=== PATIENT | female | born 1970 | race Two or more races ===

== ENCOUNTER 2017-06-25 11:54 | Emergency (ER) | payer MEDICAID ==
[~2017-06-25] VITALS: Ht 165.1 cm; Wt 59.0 kg
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
[2017-06-25] MEDS ORDERED: SILVER SULFADIAZINE CREAM 25 GM TUBE ONE (12:52)
[2017-06-25] MEDS ORDERED: IBUPROFEN 600 MG TABLET PO ONE ×2 (13:00→13:04)
[2017-06-25] MEDS ORDERED: SILVER SULFADIAZINE CREAM 25 GM TUBE TP ONE (13:00)
[2017-06-25] MEDS ORDERED: TDAP [DIPH/PERTUSSIS/TET] 0.5 ML VIAL IM ONE ×2 (13:00→13:04)
--- NOTE | 2017-06-25 13:08 | NUR ---
SILVADINE CREAM APPLIED TO R HAND WITH DRESSING
--- NOTE | 2017-06-25 13:10 | NUR ---
PT. VERBALIZED UNDERSTANDING OF AFTERCARE INSTRUCTIONS.Patient discharged to home in stable condition. Written and verbal after care instructions given. Patient verbalizes understanding of instruction.
[2017-06-25 13:14] VITALS: BP 105/60
== END 2017-06-25 13:14 | disposition home or self-care (01) ==
LOC: ER 11:59
DX: T23.201A Burn of second degree of right hand, unspecified site, initial encounter (principal); M79.641 Pain in right hand; Z90.89 Acquired absence of other organs; X19.XXXA Contact with other heat and hot substances, initial encounter; Y93.89 Activity, other specified; Y92.89 Other specified places as the place of occurrence of the external cause; Y99.8 Other external cause status
CPT/HCPCS: 16020; 90471; 90715; 99284; A4606; Z7610

== ENCOUNTER 2017-06-29 12:16 | Emergency (ER) | payer MEDICAID ==
[~2017-06-29] VITALS: Ht 157.5 cm; Wt 59.0 kg
[2017-06-29] MEDS ORDERED: SILVER SULFADIAZINE CREAM 25 GM TUBE ONE (12:35)
[2017-06-29] MEDS ORDERED: ONDANSETRON HCL/PF 4 MG/2 ML VIAL ONE (12:52)
[2017-06-29] MEDS ORDERED: IBUPROFEN 600 MG TABLET PO ONE ×2 (12:52→13:00)
[2017-06-29] MEDS ORDERED: MORPHINE SULFATE INJ 4 MG/ML DISP.SYRIN ONE ×2 (12:52→12:55)
[2017-06-29] MEDS ORDERED: ONDANSETRON 4 MG TAB.RAPDIS ONE (12:53)
[2017-06-29] MEDS ORDERED: ONDANSETRON 4 MG TAB.RAPDIS SL ONE (13:00)
[2017-06-29] MEDS ORDERED: MORPHINE SULFATE INJ 2 MG/ML DISP.SYRIN IM ONE (13:00)
[2017-06-29] MEDS ORDERED: SILVER SULFADIAZINE CREAM 25 GM TUBE TP ONE (13:00)
[2017-06-29 15:46] VITALS: BP 124/68
== END 2017-06-29 15:47 | disposition home or self-care (01) ==
LOC: ER 12:18
DX: T23.201A Burn of second degree of right hand, unspecified site, initial encounter (principal); M54.30 Sciatica, unspecified side; Z90.89 Acquired absence of other organs; Z90.49 Acquired absence of other specified parts of digestive tract; X19.XXXA Contact with other heat and hot substances, initial encounter; Y93.89 Activity, other specified; Y92.89 Other specified places as the place of occurrence of the external cause; Y99.8 Other external cause status
CPT/HCPCS: A4606; A6403; J2270; J2405; J7030; Q0162; Z7610

== ENCOUNTER 2019-01-10 19:25 | Emergency (ER) | payer MEDICAID ==
[~2019-01-10] VITALS: Ht 157.5 cm; Wt 61.2 kg
--- NOTE | 2019-01-10 19:53 | NUR ---
URINE COLLECTED AND SENT TO LAB
[2019-01-10] MEDS ORDERED: DEXAMETHASONE SOD PHOSPHATE 10 MG/ML VIAL ONE (20:13)
[2019-01-10] MEDS ORDERED: CYCLOBENZAPRINE 10 MG TABLET ONE (20:13)
[2019-01-10] MEDS ORDERED: KETOROLAC TROMETHAMINE INJ 30 MG/ML VIAL ONE (20:13)
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
[2019-01-10] MEDS ORDERED: KETOROLAC TROMETHAMINE INJ 30 MG/ML VIAL IV ONE (20:30)
[2019-01-10] MEDS ORDERED: CYCLOBENZAPRINE 10 MG TABLET PO ONE (20:30)
[2019-01-10] MEDS ORDERED: DEXAMETHASONE SOD PHOSPHATE 4 MG/ML VIAL IV ONE (20:30)
[2019-01-10] MEDS ORDERED: IV NS 0.9% 1,000 ML BAG IV ONE (20:30)
--- NOTE | 2019-01-10 20:43 | NUR ---
MEDICATED FOR PAIN PER JASON PLUMMER'S ORDER, PT PATRIZIA WELL.
--- NOTE | 2019-01-10 22:23 | NUR ---
PT AMB TO BR, PATRIZIA WELL. JASON PLUMMER AWARE.
--- NOTE | 2019-01-10 22:38 | NUR ---
Patient discharged to home in stable condition. Written and verbal after care instructions given. Patient verbalizes understanding of instruction. IV removed. Catheter intact and site benign. Pressure and 4x4 applied to site. No bleeding noted.
[2019-01-10 22:39] VITALS: BP 122/85
== END 2019-01-10 22:40 | disposition home or self-care (01) ==
LOC: ER 19:29
DX: G89.29 Other chronic pain (principal); M54.5 Low back pain; Z98.890 Other specified postprocedural states
CPT/HCPCS: 96374; 96375; 99283; J1100; J1885; J7030

== ENCOUNTER 2019-04-12 12:04 | Emergency (ER) | payer MEDICAID ==
[~2019-04-12] VITALS: Ht 157.5 cm; Wt 61.2 kg
[2019-04-12 12:09] VITALS: BP 117/65
--- NOTE | 2019-04-12 12:43 | NUR ---
PT LEFT WITHOUT BEING SEEN.
== END 2019-04-12 12:44 | disposition left against medical advice (07) ==
LOC: ER 12:05
DX: M54.9 Dorsalgia, unspecified (principal); Z53.21 Procedure and treatment not carried out due to patient leaving prior to being seen by health care provider

== ENCOUNTER 2020-09-12 17:20 | Emergency (ER) | payer MEDICAID ==
[~2020-09-12] VITALS: Ht 157.5 cm; Wt 63.5 kg
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
[2020-09-12] MEDS ORDERED: ONDANSETRON 4 MG TAB.RAPDIS ONE (17:58)
[2020-09-12] MEDS ORDERED: KETOROLAC TROMETHAMINE INJ 30 MG/ML VIAL ONE (17:58)
[2020-09-12] MEDS ORDERED: MORPHINE SULFATE INJ 2 MG/ML DISP.SYRIN IM ONE ×2 (18:00)
[2020-09-12] MEDS ORDERED: HYDROMORPHONE 1 MG/1 ML DISP.SYRIN IM ONE (18:00)
[2020-09-12] MEDS ORDERED: KETOROLAC TROMETHAMINE INJ 60 MG/2 ML VIAL IM ONE (18:00)
[2020-09-12] MEDS ORDERED: ONDANSETRON 4 MG TAB.RAPDIS SL ONE (18:00)
[2020-09-12] MEDS ORDERED: HYDROMORPHONE 1 MG/1 ML DISP.SYRIN ONE (18:04)
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
[2020-09-12 19:27] VITALS: BP 106/58
--- NOTE | 2020-09-12 19:27 | NUR ---
Patient discharged to home in stable condition. Written and verbal after care instructions given. Patient verbalizes understanding of instruction.
== END 2020-09-12 19:28 | disposition home or self-care (01) ==
LOC: ER 17:24
DX: M54.41 Lumbago with sciatica, right side (principal); G89.29 Other chronic pain; Z90.89 Acquired absence of other organs; Z98.890 Other specified postprocedural states; Z88.5 Allergy status to narcotic agent
CPT/HCPCS: 96372 ×2; 99284; J1170; J1885; Q0162

== ENCOUNTER 2020-12-11 11:10 | Emergency (ER) | payer MEDICAID ==
[~2020-12-11] VITALS: Ht 157.5 cm; Wt 74.8 kg
--- NOTE | 2020-12-11 11:20 | NUR ---
REQUESTED FOR URINE SAMPLE BUT UNABLE TO GIVE AT THIS TIME
--- NOTE | 2020-12-11 11:30 | NUR ---
SALINE LOCK ESTABLISHED, BLOOD DRAWN FOR LABS. AWAITING MD FERRIS
[2020-12-11] MEDS ORDERED: ONDANSETRON HCL/PF 4 MG/2 ML VIAL ONE (11:38)
[2020-12-11] MEDS: IV NS 0.9% 1,000 ML BAG IV ONE (11:40)
[2020-12-11] MEDS: ONDANSETRON HCL/PF 4 MG/2 ML VIAL IVP ONE (11:42)
[2020-12-11 11:49] LABS: BASOPHILS # (AUTO) 0.1 K/uL (0.0-0.2); BASOPHILS % (AUTO) 0.7 % (0.0-2.0); EOSINOPHILS % (AUTO) 1.1 % (0.0-6.0); HEMATOCRIT 41 % (33-45); HEMOGLOBIN 13.8 g/dL (11.5-14.8); LYMPHOCYTES # (AUTO) 1.7 K/uL (0.8-4.8); LYMPHOCYTES % (AUTO) 19.8 % (20.0-44.0); MEAN CORPUSCULAR HGB CONC 34 g/dl (31.0-36.0); MEAN CORPUSCULAR VOLUME 87 fL (82-100); MONOCYTES # (AUTO) 0.7 K/uL (0.1-1.30); MONOCYTES % (AUTO) 8.5 % (2.0-12.0); NEUTROPHILS # (AUTO) 6.1 K/uL (1.8-8.9); NEUTROPHILS % (AUTO) 69.9 % (43.0-81.0); PLATELET COUNT (AUTO) 190 K/uL (150-450); RED BLOOD CELL COUNT(AUTO) 4.63 MIL/uL (4.0-5.2); WHITE BLOOD COUNT (AUTO) 8.7 K/uL (4.3-11.0)
--- NOTE | 2020-12-11 11:50 | NUR ---
US TECH AT BEDSIDE
--- NOTE | 2020-12-11 11:55 | NUR ---
SEEN BY DR SANCHEZ, MEDICATED ORDERED, WAITING ON URINE SPECIMEN.
[2020-12-11 11:56] LABS: CALCIUM, SERUM 8.5 mg/dL (8.5-10.1); CREATININE 0.7 mg/dL (0.6-1.3); POTASSIUM 3.7 mmol/L (3.5-5.1)
[2020-12-11 12:03] LABS: BILIRUBIN,DIRECT 0.2 mg/dL (0.0-0.2); BILIRUBIN,TOTAL 1.1 mg/dL (0.2-1.0); TOTAL PROTEIN, SERUM 7.3 g/dL (6.4-8.2)
--- NOTE | 2020-12-11 13:19 | NUR ---
URINE COLLECTED AND SENT TO LAB
[2020-12-11] MEDS ORDERED: LIDOCAINE VISCOUS 2% UD 15 ML UDC ONE (13:23)
[2020-12-11] MEDS ORDERED: MAG HYDROX/AL HYDROX/SIMETH 30 ML UDC ONE (13:24)
[2020-12-11] MEDS ORDERED: FAMOTIDINE/PF INJ 20 MG/2 ML VIAL IV ONE (13:24)
[2020-12-11] MEDS: FAMOTIDINE/PF INJ 20 MG/2 ML VIAL IV ONE (13:30)
[2020-12-11] MEDS: LIDOCAINE VISCOUS 2% UD 15 ML UDC MM ONE (13:30)
[2020-12-11] MEDS: MAG HYDROX/AL HYDROX/SIMETH 30 ML UDC PO ONE (13:30)
[2020-12-11 13:31] LABS: BILIRUBIN,URINE Negative (NEGATIVE); COLOR,URINE YELLOW (YELLOW); LEUKOCYTE ESTERASE ,URINE Trace (NEGATIVE); NITRITE, URINE Negative (NEGATIVE); PROTEIN,URINE Negative (NEGATIVE); UGLUCOSE Negative (NEGATIVE)
[2020-12-11 13:32] LABS: BACTERIA,URINE Few /HPF (None Seen); RBC,URINE 0-2 /HPF (0-2); SQUAMOUS EPITHELIAL CELL,UR Few /HPF (None Seen)
[2020-12-11] MEDS ORDERED: IOHEXOL-300 100 ML VIAL IV ONE (14:12)
[2020-12-11] MEDS ORDERED: CIPR500T5 PO (15:21)
[2020-12-11] MEDS ORDERED: METR500T PO (15:21)
[2020-12-11] MEDS ORDERED: ONDA4TAB5 PO (15:21)
[2020-12-11 16:05] VITALS: BP 124/64
[2020-12-11] MEDS ORDERED: HYDROCODONE/APAP 5/325MG TABLET ONE (16:14)
[2020-12-11] MEDS: HYDROCODONE/APAP 5/325MG TABLET PO ONE (16:15)
--- NOTE | 2020-12-11 16:23 | NUR ---
IV removed. Catheter intact and site benign. Pressure and 4x4 applied to site. No bleeding noted.Patient discharged to waiting room in stable condition. Written and verbal after care instructions given. Patient verbalizes understanding of instruction.
== END 2020-12-11 16:27 | disposition home or self-care (01) ==
LOC: ER 11:14
DX: K52.9 Noninfective gastroenteritis and colitis, unspecified (principal); R11.2 Nausea with vomiting, unspecified; Z98.890 Other specified postprocedural states; Z90.89 Acquired absence of other organs; Z88.6 Allergy status to analgesic agent
CPT/HCPCS: 36415; 71045; 74177; 76705; 80048; 80076; 81001; 82962; 83690; 84703; 85025; 93005; 96361; 96374; 96375; 99285; J2405; J3490; J7030; Q9967